=== PATIENT | male | born 1965 | race Caucasian/White ===

== ENCOUNTER → 2024-01-10 12:12 | Outpatient (REF) | payer BC, SELFPAY | LOC: HWRAD 12:12 | PROVIDERS: ATTENDING PHYSICIAN Surgery; FAMILY PHYSICIAN Otolaryngology | DX: M79.9 Soft tissue disorder, unspecified (principal); K40.90 Unilateral inguinal hernia, without obstruction or gangrene, not specified as recurrent | CPT/HCPCS: 74177; Q9967 ==

== ENCOUNTER → 2024-05-01 06:22 | Outpatient (REF) | payer BC, SELFPAY | LOC: RCS 06:22 | PROVIDERS: ATTENDING PHYSICIAN Specialist | DX: Z01.818 Encounter for other preprocedural examination (principal) | CPT/HCPCS: 93005 ==